=== PATIENT | female | born 1950 | race Caucasian/White ===

== ENCOUNTER 2016-06-20 10:40 | Inpatient (IN) | payer OTHER ==
[2016-06-20] MEDS ORDERED: IPRATROPIUM/ALBUTEROL 3 ML DEYVIAL IH ONE (11:46)
[2016-06-20] MEDS ORDERED: methylPREDNISolone SOD SUCC 125 MG/2 ML VIAL IVP ONE (11:46)
--- NOTE | 2016-06-20 11:50 | EDPHY ---
H & P Stated Complaint: low O2 at PCP office, chest congestion. Time Seen by Provider: 06/20/16 11:27 HPI/ROS: CHIEF COMPLAINT: Shortness of breath HISTORY OF PRESENT ILLNESS: The patient is a 66-year-old obese female with a history of COPD/asthma who comes to the emergency department complaining of shortness of breath for the last 3 days. She was initially seen at this [facility] today and transferred here. She has a history of obstructive sleep apnea and wears oxygen and BiPAP at night. Over the last 3 days however she has began to wear oxygen all the time because she felt short of breath. She has had a productive cough. No sore throat or fevers or runny nose. No chest pain. No nausea vomiting or GI symptoms. She does not have any history of cardiac disease. At the clinic today she was found to be 65% on room air and increased to 80% on nasal cannula. REVIEW OF SYSTEMS: Constitutional: denies: chills, fever, recent illness, recent injury EENTM: denies: blurred vision, double vision, nose congestion Respiratory: See HPI Cardiac: denies: chest pain, irregular heart rate, lightheadedness, palpitations Gastrointestinal/Abdominal: denies: abdominal pain, diarrhea, nausea, vomiting, blood streaked stools Genitourinary: denies: dysuria, frequency, hematuria, pain Musculoskeletal: denies: joint pain, muscle pain Skin: denies: lesions, rash, jaundice, bruising Neurological: denies: headache, numbness, paresthesia, tingling, dizziness, weakness Hematologic/Lymphatic: denies: blood clots, easy bleeding, easy bruising Immunologic/allergic: denies: HIV/AIDS, transplant EXAM: GENERAL: Well-appearing, obese HEAD: Atraumatic, normocephalic. EYES: Pupils equal round and reactive to light, extraocular movements intact, sclera anicteric, conjunctiva are normal. ENT: TMs normal, nares patent, oropharynx clear without exudates. Moist mucous membranes. NECK: Normal range of motion, supple without lymphadenopathy or JVD. LUNGS: Bilateral expiratory wheezes, no rhonchi or rales. HEART: Regular rate and rhythm without murmurs, rubs or gallops. ABDOMEN: Soft, nontender, normoactive bowel sounds. No guarding, no rebound. No masses appreciated. BACK: No CVA tenderness, no spinal tenderness, step-offs or deformities EXTREMITIES: Normal range of motion, no pitting or edema. No clubbing or cyanosis. NEUROLOGICAL: Cranial nerves II through XII grossly intact. Normal speech, normal gait. 5/5 strength, normal movement in all extremities, normal sensation PSYCH: Normal mood, normal affect. SKIN: Warm, dry, normal turgor, no visible rashes or lesions. Source: Patient, RN/MD Exam Limitations: No limitations - Personal History Current Tetanus Diphtheria and Acellular Pertussis (TDAP): Unsure - Medical/Surgical History Hx Asthma: No Hx Chronic Respiratory Disease: Yes Hx Diabetes: No Hx Cardiac Disease: No Hx Renal Disease: No Hx Cirrhosis: No Hx Alcoholism: No Hx HIV/AIDS: No Hx Splenectomy or Spleen Trauma: No Other PMH: sleep apnea. - Family History Significant Family History: Asthma, Hypertension - Social History Smoking Status: Never smoked Alcohol Use: None Drug Use: None Constitutional: Initial Vital Signs Temperature (C) 36.9 C 06/20/16 10:50 Heart Rate 97 06/20/16 10:50 Respiratory Rate 18 06/20/16 10:50 Blood Pressure 121/69 H 06/20/16 10:50 O2 Sat (%) 63 L 06/20/16 10:50 O2 Delivery Mode Nasal Cannula O2 (L/minute) 4.5 Allergies/Adverse Reactions: gluten Allergy (Verified 06/20/16 13:55) eggs Allergy (Uncoded 06/20/16 10:55) Home Medications: Medication Instructions Recorded Albuterol [Proventil Inhaler HFA 2 puffs IH Q4 PRN 06/20/16 (*)] Beclomethasone Qvar 80 [Qvar 80 2 puffs IH BIDI 06/20/16 (*)] Levothyroxine [Synthroid 88 mcg 88 mcg PO DAILY06 06/20/16 (*)] Oxybutynin Chloride [Ditropan] 5 mg PO BID 06/20/16 QUEtiapine FUMARATE [Seroquel 100 100 mg PO BID 06/20/16 mg (*)] Sertraline HCl [Zoloft 100mg (*)] 200 mg PO DAILY 06/20/16 Zolpidem Tartrate [Ambien 5MG (*)] 10 mg PO HS 06/20/16 Azithromycin 250 mg PO DAILY #2 tablet 06/22/16 Cefdinir [Omnicef (*)] 300 mg PO BID #8 cap 06/22/16 predniSONE 40 mg PO DAILY #13 tablet 06/22/16 Medical Decision Making - Diagnostics EKG Interpretation: An EKG obtained and was read and documented in trace view. Please see trace view for full reading and report. Sinus rhythm, no acute ischemic changes, ED Course/Re-evaluation: 12:30 p.m. I discussed the case with Marisol who accepts for Dr. Yin. I began treating for pneumonia. The patient does feel better after albuterol nebs as well. Differential Diagnosis: Partial list of the Differential diagnosis considered include but were not limited to; COPD, pneumonia, bronchitis and although unlikely based on the history and physical exam, I also considered PE, acute coronary disease, CHF. - Data Points Laboratory Results: Laboratory Results 06/20/16 11:50 06/20/16 11:50 Microbiology Results: MICROBIOLOGY 06/20/16 12:25 Blood Blood Culture - Preliminary 06/20/16 11:50 Blood Blood Culture - Preliminary Medications Given: Discontinued Medications Albuterol/Ipratropium (Duoneb) 3 ml IH EDNOW ONE Stop: 06/20/16 11:47 Last Admin: 06/20/16 12:20 Dose: 3 ml Albuterol/Ipratropium (Duoneb) 3 ml IH QID [facility] Stop: 12/17/16 15:59 Last Admin: 06/22/16 11:48 Dose: Not Given Azithromycin (Zithromax) 500 mg PO DAILY [facility] Stop: 07/22/16 08:59 Last Admin: 06/22/16 08:03 Dose: 500 mg Beclomethasone Dipropionate (Qvar 80) 2 puffs IH BIDI [facility] Stop: 12/17/16 17:59 Last Admin: 06/22/16 05:46 Dose: Not Given Enoxaparin Sodium (Lovenox) 40 mg SC DAILY [facility] Stop: 12/18/16 08:59 Last Admin: 06/21/16 08:35 Dose: 40 mg Enoxaparin Sodium (Lovenox) 40 mg SC BID [facility] Stop: 12/18/16 20:59 Last Admin: 06/22/16 08:04 Dose: 40 mg Azithromycin 500 mg/ Dextrose 255 mls @ 255 mls/hr IV DAILY [facility] PRN Reason: Protocol Stop: 07/20/16 12:29 Last Admin: 06/21/16 09:34 Dose: 255 mls Ceftriaxone Sodium/Dextrose (Rocephin 1 Gm (Premix)) 50 mls @ 100 mls/hr IV DAILY [facility] PRN Reason: Protocol Stop: 07/20/16 12:29 Last Admin: 06/22/16 08:58 Dose: 50 mls Sodium Chloride (Ns) 1,000 mls @ 0 mls/hr IV ONCE ONE PRN Reason: Wide Open Stop: 06/20/16 12:41 Last Admin: 06/20/16 12:49 Dose: 1,000 mls Levothyroxine Sodium (Synthroid) 88 mcg PO DAILY06 [facility] Stop: 12/18/16 05:59 Last Admin: 06/22/16 05:53 Dose: 88 mcg Methylprednisolone Sodium Succinate (Solu-Medrol) 125 mg IVP EDNOW ONE Stop: 06/20/16 11:47 Last Admin: 06/20/16 12:20 Dose: 125 mg Methylprednisolone Sodium Succinate (Solu-Medrol) 60 mg IVP Q6HRS [facility] Stop: 12/18/16 09:29 Last Admin: 06/22/16 05:53 Dose: 60 mg Oxybutynin Chloride (Ditropan) 5 mg PO BID [facility] Stop: 12/17/16 20:59 Last Admin: 06/22/16 08:03 Dose: 5 mg Prednisone (Prednisone) 40 mg PO DAILY [facility] Stop: 12/19/16 09:29 Last Admin: 06/22/16 11:09 Dose: 40 mg Quetiapine Fumarate (Seroquel) 100 mg PO BID [facility] Stop: 12/17/16 20:59 Last Admin: 06/22/16 08:03 Dose: 100 mg Sertraline HCl (Zoloft) 200 mg PO DAILY [facility] Stop: 12/18/16 08:59 Last Admin: 06/22/16 08:03 Dose: 200 mg Zolpidem Tartrate (Ambien) 10 mg PO HS [facility] Stop: 12/17/16 20:59 Last Admin: 06/21/16 20:24 Dose: 10 mg Departure - Departure Disposition: [facility] Clinical Impression: Exacerbation of asthma Pneumonia Qualifiers: Pneumonia type: due to unspecified organism Laterality: right Lung location: lower lobe of lung Qualifier Code: (J18.1) Lobar pneumonia, unspecified organism Sepsis Qualifiers: Sepsis type: sepsis due to unspecified organism Qualifier Code: (A41.9) Sepsis , unspecified organism Condition: Fair
--- NOTE | 2016-06-20 11:56 | CPEKG ---
Heart Rate: 73 RR Interval: 822 P-R Interval: 136 QRSD Interval: 84 QT Interval: 392 QTC Interval: 432 P [place]: 56 QRS [place]: 42 T Wave [place]: 49 EKG Severity - NORMAL ECG - EKG Impression: SINUS RHYTHM Electronically Signed By: Haroldo Meneses 20-Jun-2016 12:29:35
[2016-06-20 12:08] LABS: % IMMATURE GRANULYOCYTES 0.8 % (0.0-1.1); ABSOLUTE IMMATURE GRANULOCYTES 0.05 10^3/uL (0.00-0.10); ADD DIFF? NO; ADD MORPH? NO; ADD SCAN? YES; FRAGMENT RBC FLAG 0 (0-99); HEMOGLOBIN 14.5 g/dL (12.6-16.3); LEFT SHIFT FLG 0 (0-99); LIPEMIA HEMOLYSIS FLAG 80 (0-99); MEAN CELL HEMOGLOBIN 32.3 pg (27.9-34.1); MEAN CELL HEMOGLOBIN CONCENTR. 32.2 g/dL (32.4-36.7); MEAN CELL VOLUME 100.2 fL (81.5-99.8); MEAN PLATELET VOLUME 9.7 fL (8.7-11.7); PLATELET CLUMPS FLAG 0 (0-99); PLATELET COUNT 169 10^3/uL (150-400); RED BLOOD CELL COUNT 4.49 10^6/uL (4.18-5.33); RED CELL DISTRIBUTION WIDTH 14.3 % (11.5-15.2)
--- NOTE | 2016-06-20 12:22 | DX ---
Chest, PA and Lateral, 11:32 am History: Dyspnea and chest pain Findings: Lung volumes are mildly prominent. There is patchy infiltrate associated with bronchial wa ll thickening posterior to the heart seen on the lateral view, which is likely in the right lower lob e. There is no pleural effusion. The right hilum is somewhat nodular raising the possibility of react andrew adenopathy. Bones are unremarkable for age. The patient is obese. Impression:1. Patchy right lower lobe pneumonia. 2. Recommend follow-up chest x-ray to reassess the right hilum after antibiotic therapy has concluded . If there are any old outside chest x-rays, we would be happy to review them to assess for interval change. Results called and discussed with JUNIOR CARLSON MD at 06/20/2016 12:20
[2016-06-20 12:28] LABS: APTT 25.7 SEC (23.0-38.0); INR 1.1 (0.83-1.16); PROTIME(PATIENT) 14.1 SEC (12.0-15.0)
[2016-06-20 12:33] LABS: ATYPICAL LYMPHOCYTE FLAG 140 (0-99)
[2016-06-20 12:34] LABS: ANION GAP 7 mEq/L (8-16); BILIRUBIN,TOTAL 0.8 mg/dL (0.1-1.4); CALCIUM 9.1 mg/dL (8.5-10.4); CARBON DIOXIDE 31 mEq/l (22-31); CHLORIDE 103 mEq/L (97-110); CREATININE 0.6 mg/dL (0.6-1.0); GLOMERULAR FILTRATION RATE > 60; GLUCOSE 93 mg/dL (70-100); SODIUM 141 mEq/L (134-144)
[2016-06-20] MEDS ORDERED: NS 1,000 ML IV ONE (12:40)
[2016-06-20 12:44] LABS: TROPONIN I < 0.012 ng/mL (0-0.034)
[2016-06-20 12:59] LABS: SCAN NEGATIVE
[2016-06-20] MEDS: AZITHROMYCIN IV 500 MG in D5W 250 ML IV SCH (13:13)
[2016-06-20] MEDS ORDERED: ONDANSETRON DISINTEGRATING 4 MG TAB PO PRN (15:39)
[2016-06-20] MEDS ORDERED: ALBUTEROL 3 ML DEYVIAL IH PRN (15:39)
[2016-06-20] MEDS ORDERED: ACETAMINOPHEN 325 MG TAB PO PRN (15:39)
[2016-06-20] MEDS ORDERED: ONDANSETRON 4 MG/2 ML VIAL IVP PRN (15:39)
[2016-06-20] MEDS ORDERED: BECLOMETHASONE QVAR 80 MDI IH SCH (15:45)
--- NOTE | 2016-06-20 16:06 | GHP ---
[f rep st] HISTORY AND PHYSICAL DATE OF ADMISSION: 06/20/2016 CHIEF COMPLAINT: Shortness of breath. HISTORY OF PRESENT ILLNESS: This is a 66-year-old female, with a history of asthma. She states that over the last 5 days she has had increasing sputum production, cough with green sputum, shortness of breath and wheezing. She was and her oxygen sats were low and she is on oxygen at home for nighttime and she has been using it during the day. No chest pain. REVIEW OF SYSTEMS: A 10-point review of systems was obtained and otherwise negative. PAST MEDICAL HISTORY: 1. Asthma. 2. Obstructive sleep apnea. 3. Overactive bladder. MEDICATIONS: Reviewed. SOCIAL HISTORY: No smoking. No alcohol. 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 FAMILY HISTORY: Reviewed and noncontributory. PHYSICAL EXAM: VITAL SIGNS: Afebrile. Blood pressure is 129/90, heart rate 81, oxygen saturation i s 63% on room air and 93% on 2 L. GENERAL: The patient is well developed, in no apparent distress. HEENT: Nonicteric sclerae. Extraocular muscles intact. Moist mucous membranes. NECK: Supple. N o thyromegaly. LUNGS: Good effort. Decreased breath sounds throughout, some coarse expiratory whee zes, scattered, and slight rhonchi. ABDOMEN: Positive bowel sounds. Soft, nontender, nondistended. No hepatosplenomegaly. EXTREMITIES: 2+ pedal edema which she says is chronic. NEUROLOGIC: Alert and oriented x3. Moving all 4 extremities equally. PSYCH: Normal affect. LABORATORY DATA: CBC is essentially normal. Chemistry is normal. Chest x-ray shows patchy right lo wer lobe infiltrate and some probable reactive adenopathy. ASSESSMENT: This is a 66-year-old female presenting with community-acquired pneumonia and asthma exa cerbation. PLAN: 1. Community-acquired pneumonia. We will continue the azithromycin and ceftriaxone that was started in the emergency department. 2. Asthma exacerbation. Will continue steroids as well as nebulizer treatments. 3. Obstructive sleep apnea. Continue home oxygen. 4. The patient will be placed under observation status. Case discussed with the ER physician. /[id number]/MODL
[2016-06-20] MEDS: IPRATROPIUM/ALBUTEROL 3 ML DEYVIAL IH SCH ×2 (16:37→20:44)
[2016-06-20] MEDS: BECLOMETHASONE QVAR 80 MDI IH SCH (16:38)
[2016-06-20] MEDS: ZOLPIDEM TARTRATE 5 MG TAB PO SCH (22:00)
[2016-06-20] MEDS: OXYBUTYNIN CHLORIDE 5 MG TAB PO SCH (22:00)
[2016-06-20] MEDS: QUEtiapine FUMARATE 100 MG TAB PO SCH (22:00)
[2016-06-21] MEDS: IPRATROPIUM/ALBUTEROL 3 ML DEYVIAL IH SCH ×4 (06:08→20:37)
[2016-06-21] MEDS: BECLOMETHASONE QVAR 80 MDI IH SCH ×2 (06:11→16:28)
[2016-06-21] MEDS: LEVOTHYROXINE 88 MCG TAB PO SCH (06:14)
[2016-06-21] MEDS: SERTRALINE HCL 100 MG TAB PO SCH (08:34)
[2016-06-21] MEDS: QUEtiapine FUMARATE 100 MG TAB PO SCH ×2 (08:35→20:24)
[2016-06-21] MEDS: OXYBUTYNIN CHLORIDE 5 MG TAB PO SCH ×2 (08:35→20:24)
[2016-06-21] MEDS ORDERED: ENOXAPARIN 40 MG/0.4 ML SYR SC SCH (09:00)
[2016-06-21] MEDS ORDERED: predniSONE 20 MG TAB PO SCH (09:30)
[2016-06-21] MEDS: AZITHROMYCIN IV 500 MG in D5W 250 ML IV SCH (09:34)
--- NOTE | 2016-06-21 09:35 | HOSPPROG ---
Hospitalist Progress Note Assessment/Plan: * community-acquired pneumonia * continue ceftriaxone and azithromycin * asthma exacerbation * not much better * will continue IV steroids today * continue nebs * acute hypoxic respiratory failure * usually not on any oxygen at daytime but now is on 5 L * obstructive sleep apnea * chronic lower extremity edema * DVT prophylaxis * twice daily Lovenox Subjective: feels little better Objective: Vital Signs Temp Pulse Resp BP Pulse Ox 36.6 C 70 18 150/81 H 95 06/21/16 07:16 06/21/16 07:16 06/21/16 07:16 06/21/16 07:16 06/21/16 07:16 06/20/16 06/21/16 06/22/16 05:59 05:59 05:59 Intake Total 2150 Balance 2150 PT 14.1 SEC (12.0-15.0) 06/20/16 11:50 INR 1.10 (0.83-1.16) 06/20/16 11:50 - Physical Exam Constitutional: no apparent distress, appears nourished, not in pain Eyes: anicteric sclera, EOMI Ears, Nose, Mouth, Throat: moist mucous membranes, hearing normal, ears appear normal Cardiovascular: regular rate and rhythym, no murmur, rub, or gallop, edema ( 2+) Respiratory: other ( decreased breath sounds, coarse expiratory wheezes and some rhonchi) Gastrointestinal: normoactive bowel sounds, soft, non-tender abdomen, no palpable masses Neurologic: AAOx3 Psychiatric: interacting appropriately, not anxious, not encephalopathic, thought process linear ICD10 Worksheet Patient Problems: Problems Problem Status Diagnosed Exacerbation of asthma Acute Pneumonia Acute Sepsis Acute
[2016-06-21] MEDS: methylPREDNISolone SOD SUCC 125 MG/2 ML VIAL IVP SCH ×4 (09:49→23:29)
--- NOTE | 2016-06-21 15:12 | DX ---
Portable AP chest. 06/21/2016 at 1349 History: Dyspnea. Comparison Study: June 20, 2016. Findings: Interstitial thickening is present in the lung bases bilaterally, suggestive of interstitia l pneumonitis. No pleural effusion. Heart size is normal. Impression: Bilateral lower lobe interstitial pneumonitis.
[2016-06-21] MEDS: ENOXAPARIN 40 MG/0.4 ML SYR SC SCH (20:24)
[2016-06-21] MEDS: ZOLPIDEM TARTRATE 5 MG TAB PO SCH (20:24)
[2016-06-22] MEDS: IPRATROPIUM/ALBUTEROL 3 ML DEYVIAL IH SCH ×2 (05:44→11:48)
[2016-06-22] MEDS: BECLOMETHASONE QVAR 80 MDI IH SCH (05:46)
[2016-06-22] MEDS: methylPREDNISolone SOD SUCC 125 MG/2 ML VIAL IVP SCH (05:53)
[2016-06-22] MEDS: LEVOTHYROXINE 88 MCG TAB PO SCH (05:53)
[2016-06-22 07:29] VITALS: BP 148/92; TEMP 98.1
[2016-06-22] MEDS: QUEtiapine FUMARATE 100 MG TAB PO SCH (08:03)
[2016-06-22] MEDS: OXYBUTYNIN CHLORIDE 5 MG TAB PO SCH (08:03)
[2016-06-22] MEDS: SERTRALINE HCL 100 MG TAB PO SCH (08:03)
[2016-06-22] MEDS: ENOXAPARIN 40 MG/0.4 ML SYR SC SCH (08:04)
[2016-06-22] MEDS ORDERED: AZITHROMYCIN 250 MG TAB PO SCH (09:00)
[2016-06-22] MEDS ORDERED: predniSONE 20 MG TAB PO SCH (09:30)
--- NOTE | 2016-06-22 09:48 | GDS ---
[f rep st] DISCHARGE SUMMARY DISCHARGE DIAGNOSES: 1. Community-acquired pneumonia, probably viral. 2. Asthma exacerbation. 3. History of obstructive sleep apnea. 4. Acute hypoxic respiratory failure. HISTORY: This is a 66-year-old female who presented with progressive shortness of breath. HOSPITAL COURSE: The patient was admitted and was quite hypoxic initially. She had an x-ray that di d show pneumonia, although it looks a little bit more like pneumonitis, possibly viral. She was plac ed on antibiotics as well as IV steroids and nebulizer treatments. She did improve over the next cou ple of days and her oxygen requirement has gone down ,although it is not completely back to normal. She needs oxygen at night but not usually during the day. She is requiring about 3 L. She will be d ischarged home currently on continued prednisone as well as antibiotics. DISPOSITION: Home. DISCHARGE MEDICATIONS: She is to continue her home medications. In addition, she will be given pred nisone taper, azithromycin, and Omnicef. FOLLOWUP INSTRUCTIONS: She was instructed to follow up with her primary care doctor next week. Greater than 30 minutes was spent on discharge. /[id number]/MODL
[2016-06-22 10:01] VITALS: PULSE 115; O2SAT 83
[2016-06-22 10:18] VITALS: RESP 15
== END 2016-06-22 12:15 | disposition home or self-care (01) | DRG 193 ==
LOC: F3E 13:33 → OBSVTOIN 06-21 09:31
PROVIDERS: ADMIT Hospitalist; ATTEND Internal Medicine
DX: J12.9 Viral pneumonia, unspecified (principal); J96.01 Acute respiratory failure with hypoxia; J45.901 Unspecified asthma with (acute) exacerbation; G47.33 Obstructive sleep apnea (adult) (pediatric)
CPT/HCPCS: 96374; G0378; J0456; J0696; J1650